=== PATIENT | male | born 1965 | race Caucasian/White ===

== ENCOUNTER 2019-03-04 23:12 | Emergency (ER) | payer MEDICAID ==
[~2019-03-04] VITALS: Ht 172.7 cm; Wt 72.1 kg
[2019-03-04 23:15] VITALS: BP 164/82
--- NOTE | 2019-03-04 23:43 | NUR ---
CARE ASSUMED FOR DC. PT DC'D HOME WITH RX X 2 AND UNDERSTANDING OF INSTRUCTIONS. PT AMBULATED TO DC DESK WITHOUT DIFFICULTY.
== END 2019-03-04 23:45 | disposition home or self-care (01) ==
LOC: ED 23:15
DX: L01.03 Bullous impetigo (principal); J34.0 Abscess, furuncle and carbuncle of nose; L03.114 Cellulitis of left upper limb; L03.113 Cellulitis of right upper limb
CPT/HCPCS: 99283